=== PATIENT | female | born 1985 | race Caucasian/White ===

== ENCOUNTER 2016-05-04 20:40 | Emergency (ER) | payer MEDICARE, MEDICAID ==
[~2016-05-04] VITALS: Ht 162.6 cm; Wt 70.5 kg
[~2016-05-04 20:40] MED LIST: AMBIEN5 MG PO; AMOXICILLIN 50500 MG PO; AMOXICILLIN 8751 TAB PO; ATARAX 25MG25 MG/TAB PO; ATIVAN; ATIVAN 0.50.5 MG/TAB PO; BUTALBITAL/APAP1 TA1 PO; CALAN SR240 MG PO; CARAFATE 1GM1 G PO; CIPRO; CIPRO 500MG TA500 MG PO; CLEOCIN HC150 MG/CAP PO; COMBIVENT INH14.7 GM IH; COMPAZINE25 M1 PO; CYCLOBENZAPRINE10 MG PO; CYMBALTA60 MG PO; DARVOCET N 101 UDTAB PO; DARVOCET-N-101 UDTAB PO; DESYREL 50MG50 MG PO; DIAZEPAM5 MG PO; DILAUDID 2MG TAB2 MG PO; DILAUDID 4MG TAB4 MG PO; DILAUDID4 MG PO; DOXYCYCLINE 10100 MG PO; EC NAPROSYN500 MG PO; ELAVIL10 MG PO; FENTANYL 50MCG TP; FIORICET 325 MG1 TAB PO; FLEXERIL 1010 MG/TAB PO; FLEXERIL10 MG PO; HALDOL 2MG T2 MG/TAB PO; HYDROCODONE BIT1 T44 PO; IBU-8800 MG PO; IBU800 M1 PO; INDERAL 20MG20 MG PO; KETOROLAC IM; KETOROLAC10 MG PO; KLONOPIN 0.5MG0.5 MG PO; KLONOPIN1 MG PO; KLONOPIN2 MG PO; LIORESAL 1010 MG/TAB PO; LITHIUM 30300 MG/CAP PO; LORTAB 7.5/5001 TAB PO; LORTAB ELIX0.5 MG/ML; LYRICA; MACROBID 1100 MG/CAP PO; MACROBID100 MG PO; MAXALT MLT10 MG/TAB PO; MEDROL 4MG DOSPA4 MG PO; METOPROLOL SUCC25 M1 PO; MOTRIN 800800 MG/TAB PO; MOTRIN400 MG PO; MOTRIN800 MG PO; NAPROSYN500 MG PO; NAPROXEN250 MG PO; NEURONTIN300 MG/CAP PO; NO HOME MEDICATIONS; NORCO 325 MG-51 TAB PO; OMNICEF 300MG300 MG PO; OXYCODONE5 MG PO; PCN-200200 MG PO; PEPCID 20MG TAB20 MG PO; PERCOCET 325 MG1 TA2 PO; PERCR 7.5 PO; PHENERGAN 25 TA25 MG; PHENERGAN 25 TA25 MG PO; PHENERGAN25 MG RC; PRILOSEC 20MG20 MG PO; PROMETHAZINE12.5 M5 PO; PYRIDIUM 100MG100 MG PO; PYRIDIUM200 M1 PO; REGLAN 10MG10 MG/TAB PO; RISPERDAL 0.5M0.5 MG PO; ROBAXIN500 MG PO; SEROQUEL 2525 MG/TAB PO; SEROQUEL50 MG PO; SOMA; SOMA 350MG350 MG/TAB PO; SUPREX FERROUS325 MG PO; TENORMIN 2525 MG/TAB PO; TENORMIN 5050 MG/TAB; TENORMIN 5050 MG/TAB PO; TIZANIDINE2 MG PO; TOPAMAX 25MG25 MG PO; TOPROL XL 50MG50 MG PO; TRAMADOL50 MG PO; TRAZADONE HYDR100 MG PO; TUSS PO; TYLENOL 500MG500 MG PO; TYLENOL W/COD1 UDTAB PO; ULTRAM 50MG TAB50 MG PO; ULTRAM50 MG PO; UNABLE; URELLE; VALIUM 5MG T5 MG/TAB PO; VALIUM5 MG PO; VYVANSE30 MG PO; XANAX 0.5MG0.5 MG PO; XANAX 1MG1 MG PO; XANAX0.25 MG PO; XANAX0.5 MG PO; XANAX2 MG PO; ZANAFLEX2 MG PO; ZANAFLEX4 M1 PO; ZOFRAN 8MG8 MG PO; ZOFRAN4 MG PO; ZOLPIDEM5 MG PO; ZYPREXA10 MG PO
[2016-05-04 21:46] LABS: BASO # 0.1 (0.0-0.2); BASO % 0.7 % (0.0-2.0); EOS # 0.3 (0.0-0.7); EOS % 3.9 % (0-4.0); GRAN # 3.5 (1.4-6.5); GRAN % 47.6 % (42.2-75.2); LYMPH # 2.9 (1.2-3.4); LYMPH % 38.9 % (20.0-51.0); MEAN CELL VOLUME 98 fl (80.0-100.0); MEAN CORPUSCULAR HGB CONC 33 g/dl (33.0-37.0); MONO # 0.7 (0.1-0.6); MONO % 8.9 % (1.7-9.3); PLATELET COUNT 277 K/mm3 (130-400); RED BLOOD COUNT 3.66 M/mm3 (4.10-5.30); REDCELL DISTRIBUTION WIDTH-CV 12.9 % (11.5-14.5); WHITE BLOOD COUNT 7.4 K/mm3 (4.8-10.8)
[2016-05-04 21:50] LABS: HEMATOCRIT 35.8 % (37.0-47.0); HEMOGLOBIN 11.9 g/dl (12.5-16.0); MEAN CORPUSCULAR HEMOGLOBIN 33 pg (27.0-31.0)
[2016-05-04 21:53] LABS: BILIRUBIN,TOTAL 0.5 mg/dL (0.0-1.0); CREATININE, serum 0.73 mg/dL (0.52-1.25); POTASSIUM 4.5 mmol/L (3.4-5.0); TOTAL PROTEIN 7.1 gm/dL (6.4-8.2)
[2016-05-04 23:34] VITALS: BP 114/77; PULSE 90; TEMP 97.6
== END 2016-05-04 23:37 | disposition home or self-care (01) ==
LOC: COL.ER 20:40
PROVIDERS: Emergency Medicine
DX: S06.0X9A Concussion with loss of consciousness of unspecified duration, initial encounter (principal); M54.2 Cervicalgia; M54.89 Other dorsalgia; V80.010A Animal-rider injured by fall from or being thrown from horse in noncollision accident, initial encounter; Y93.52 Activity, horseback riding
CPT/HCPCS: J1170; J2060; J7030; Q9967

== ENCOUNTER 2016-05-17 13:39 | Emergency (ER) | payer MEDICARE, MEDICAID ==
[~2016-05-17] VITALS: Ht 162.6 cm; Wt 70.0 kg
[2016-05-17 13:40] VITALS: BP 119/76; PULSE 82; TEMP 98.2
[2016-05-17] MEDS ORDERED: MOBIC15 MG PO (13:44)
== END 2016-05-17 14:30 | disposition left against medical advice (07) ==
LOC: COL.ER 13:39
DX: Z53.9 Procedure and treatment not carried out, unspecified reason (principal)

== ENCOUNTER 2016-06-08 19:42 | Emergency (ER) | payer MEDICARE, MEDICAID ==
[~2016-06-08] VITALS: Ht 162.6 cm; Wt 67.7 kg
[~2016-06-08 19:42] MED LIST changes: +MOBIC15 MG PO
[2016-06-08 19:50] VITALS: BP 129/87; PULSE 93; TEMP 98.1
== END 2016-06-08 21:34 | disposition home or self-care (01) ==
LOC: COL.ER 19:42
DX: T52.0X1A Toxic effect of petroleum products, accidental (unintentional), initial encounter (principal); H10.211 Acute toxic conjunctivitis, right eye

== ENCOUNTER 2016-06-21 11:10 | Emergency (ER) | payer MEDICARE, MEDICAID ==
[~2016-06-21] VITALS: Ht 162.6 cm; Wt 63.6 kg
[2016-06-21] MEDS ORDERED: PREDNISONE20 MG PO (12:21)
[2016-06-21] MEDS ORDERED: ZITHROMAX Z PA250 MG PO (12:21)
[2016-06-21 12:46] VITALS: BP 117/74; PULSE 92; TEMP 98.1
== END 2016-06-21 12:54 | disposition home or self-care (01) ==
LOC: COL.ER 11:10
DX: J20.9 Acute bronchitis, unspecified (principal); J45.909 Unspecified asthma, uncomplicated; F17.210 Nicotine dependence, cigarettes, uncomplicated

== ENCOUNTER 2016-07-28 15:08 | Emergency (ER) | payer MEDICARE, MEDICAID ==
[~2016-07-28] VITALS: Ht 162.6 cm; Wt 68.2 kg
[~2016-07-28 15:08] MED LIST changes: +PREDNISONE20 MG PO; +ZITHROMAX Z PA250 MG PO
[2016-07-28 15:13] VITALS: TEMP 99.1
[2016-07-28] MEDS ORDERED: LIORESAL20 MG PO (15:16)
[2016-07-28 15:57] LABS: BASO # 0.1 (0.0-0.2); BASO % 0.7 % (0.0-2.0); EOS # 0.1 (0.0-0.7); EOS % 1.6 % (0-4.0); GRAN # 4.5 (1.4-6.5); GRAN % 60.7 % (42.2-75.2); HEMATOCRIT 38.3 % (37.0-47.0); HEMOGLOBIN 12.9 g/dl (12.5-16.0); LYMPH # 2.3 (1.2-3.4); LYMPH % 30.6 % (20.0-51.0); MEAN CELL VOLUME 93 fl (80.0-100.0); MEAN CORPUSCULAR HEMOGLOBIN 31 pg (27.0-31.0); MEAN CORPUSCULAR HGB CONC 34 g/dl (33.0-37.0); MEAN PLATELET VOLUME 11.3 fl (7.4-10.4); MONO # 0.5 (0.1-0.6); MONO % 6.3 % (1.7-9.3); PLATELET COUNT 240 K/mm3 (130-400); RED BLOOD COUNT 4.13 M/mm3 (4.10-5.30); REDCELL DISTRIBUTION WIDTH-CV 12.8 % (11.5-14.5); WHITE BLOOD COUNT 7.4 K/mm3 (4.8-10.8)
[2016-07-28 16:06] LABS: ADJUSTED CALCIUM 9.6 mg/dL (8.4-10.2); ALBUMIN 4.4 gm/dL (3.5-5.0); BILIRUBIN,TOTAL 0.7 mg/dL (0.0-1.0); CALCIUM 9.9 mg/dL (8.4-10.2); CREATININE, serum 0.63 mg/dL (0.52-1.25); POTASSIUM 3.7 mmol/L (3.4-5.0); TOTAL PROTEIN 7.4 gm/dL (6.4-8.2)
[2016-07-28 16:29] LABS: PH 6 (5-8); URINE APPEARANCE Hazy; URINE BACTERIA Rare /hpf; URINE BILIRUBIN Negative (NEGATIVE); URINE BLOOD Negative (NEGATIVE); URINE COLOR Yellow; URINE GLUCOSE Negative (NEGATIVE); URINE KETONE 1+ (NEGATIVE); URINE RBC 0-2 /hpf; URINE UROBILINOGEN Negative (NEGATIVE); URINE WBC 0-2 /hpf
[2016-07-28] MEDS ORDERED: PHENERGAN 25 TA25 MG PO (16:44)
[2016-07-28 16:57] VITALS: BP 117/66; PULSE 73
== END 2016-07-28 17:02 | disposition home or self-care (01) ==
LOC: COL.ER 15:08
PROVIDERS: Family Medicine
DX: A08.4 Viral intestinal infection, unspecified (principal)
CPT/HCPCS: J2550; J7030

== ENCOUNTER 2017-01-19 02:33 | Inpatient (IN) | payer MEDICARE ==
[2017-01-19] VITALS (869 sets, daily range): BP systolic 90–112; BP diastolic 53–76; PULSE 48–91; TEMP 97.6–98.7; O2SAT 66–100
[~2017-01-19] VITALS: Ht 172.7 cm; Wt 70.2 kg
[~2017-01-19 02:33] MED LIST changes: +LIORESAL20 MG PO
[2017-01-19 03:40] LABS: BASO % 0.5 % (0.0-2.0); EOS # 0.3 (0.0-0.7); EOS % 3.8 % (0-4.0); GRAN # 4.4 (1.4-6.5); GRAN % 53.7 % (42.2-75.2); LYMPH # 2.7 (1.2-3.4); MEAN CELL VOLUME 99 fl (80.0-100.0); MEAN CORPUSCULAR HEMOGLOBIN 33 pg (27.0-31.0); MEAN CORPUSCULAR HGB CONC 34 g/dl (33.0-37.0); MEAN PLATELET VOLUME 10.6 fl (7.4-10.4); MONO # 0.7 (0.1-0.6); MONO % 8.6 % (1.7-9.3); PLATELET COUNT 263 K/mm3 (130-400); RED BLOOD COUNT 3.61 M/mm3 (4.10-5.30); REDCELL DISTRIBUTION WIDTH-CV 12.9 % (11.5-14.5); WHITE BLOOD COUNT 8.3 K/mm3 (4.8-10.8)
[2017-01-19 03:43] LABS: HEMATOCRIT 35.8 % (37.0-47.0)
[2017-01-19 03:44] LABS: PH 6 (5-8); SQUAMOUS EPITHELIAL 0-2 /hpf; URINE APPEARANCE Clear; URINE BACTERIA None Seen /hpf; URINE BILIRUBIN Negative (NEGATIVE); URINE BLOOD 2+ (NEGATIVE); URINE COLOR Straw; URINE GLUCOSE Negative (NEGATIVE); URINE KETONE Negative (NEGATIVE); URINE UROBILINOGEN Negative (NEGATIVE); URINE WBC 0-2 /hpf
[2017-01-19 03:53] LABS: AMPHETAMINE URINE NEGATIVE; BARBITURATES URINE NEGATIVE; BENZODIAZEPINES URINE NEGATIVE; BUPRENORPHINE URINE NEGATIVE; METHADONE URINE NEGATIVE; OPIATES URINE POSITIVE; OXYCODONE URINE NEGATIVE; PHENCYCLIDINE URINE NEGATIVE; PROPOXYPHENE URINE NEGATIVE; THC CANNABINOIDS URINE NEGATIVE
[2017-01-19 03:55] LABS: ADJUSTED CALCIUM 9.3 mg/dL (8.4-10.2); ALANINE AMINOTRANSFERASE 33 U/L (9-52); ALKALINE PHOSPHATASE 70 U/L (50-136); ANION GAP 10 mmol/L (7-16); BILIRUBIN,TOTAL 0.3 mg/dL (0.0-1.0); BLOOD UREA NITROGEN 8 mg/dL (7-17); CALCIUM 9.3 mg/dL (8.4-10.2); CARBON DIOXIDE 26 mmol/L (22-30); CHLORIDE 108 mmol/L (98-107); CREATININE, serum 0.64 mg/dL (0.52-1.25); GLUCOSE 79 mg/dL (74-106); LIPASE 66 U/L (23-300); POTASSIUM 3.7 mmol/L (3.4-5.0); SODIUM 143 mmol/L (137-145)
[2017-01-19 03:56] LABS: ACETAMINOPHEN < 10 ug/mL (10-30); SALICYLATE < 1.0 mg/dL
[2017-01-19 04:11] LABS: PROLACTIN 26.5 ng/mL (3.0-18.6)
[2017-01-19 04:13] LABS: TROPONIN-I < 0.012 ng/mL (0.000-0.034)
[2017-01-19 09:56] LABS: INR 1.1 (0.8-3.0); PROTHROMBIN TIME 11.7 SECONDS (9.7-12.8)
[2017-01-19 09:57] LABS: BASO % 0.7 % (0.0-2.0); EOS # 0.2 (0.0-0.7); EOS % 4.1 % (0-4.0); GRAN # 2.3 (1.4-6.5); GRAN % 42.2 % (42.2-75.2); LYMPH # 2.4 (1.2-3.4); LYMPH % 44.7 % (20.0-51.0); MEAN CELL VOLUME 101 fl (80.0-100.0); MEAN CORPUSCULAR HGB CONC 33 g/dl (33.0-37.0); MEAN PLATELET VOLUME 10.6 fl (7.4-10.4); MONO # 0.4 (0.1-0.6); MONO % 8.1 % (1.7-9.3); PLATELET COUNT 222 K/mm3 (130-400); RED BLOOD COUNT 3.14 M/mm3 (4.10-5.30); REDCELL DISTRIBUTION WIDTH-CV 13.2 % (11.5-14.5); WHITE BLOOD COUNT 5.4 K/mm3 (4.8-10.8)
[2017-01-19 09:59] LABS: PARTIAL THROMBOPLASTIN TIME 31.9 SECONDS (26.0-37.0)
[2017-01-19 10:02] LABS: HEMATOCRIT 31.6 % (37.0-47.0); HEMOGLOBIN 10.4 g/dl (12.5-16.0); MEAN CORPUSCULAR HEMOGLOBIN 33 pg (27.0-31.0)
[2017-01-19 10:25] LABS: ADJUSTED CALCIUM 8.8 mg/dL (8.4-10.2); ALANINE AMINOTRANSFERASE 28 U/L (9-52); ALBUMIN 3.1 gm/dL (3.5-5.0); ALKALINE PHOSPHATASE 50 U/L (50-136); ANION GAP 7 mmol/L (7-16); BILIRUBIN,TOTAL 0.3 mg/dL (0.0-1.0); BLOOD UREA NITROGEN 6 mg/dL (7-17); CALCIUM 8.1 mg/dL (8.4-10.2); CARBON DIOXIDE 25 mmol/L (22-30); CHLORIDE 112 mmol/L (98-107); CREATINE KINASE 54 U/L (30-135); CREATININE, serum 0.57 mg/dL (0.52-1.25); GLUCOSE 137 mg/dL (74-106); MAGNESIUM 1.8 mg/dL (1.6-2.3); PHOSPHOROUS 2.7 mg/dL (2.5-4.5); POTASSIUM 3.6 mmol/L (3.4-5.0); SODIUM 144 mmol/L (137-145); TOTAL PROTEIN 5.7 gm/dL (6.4-8.2)
[2017-01-19 10:33] LABS: TROPONIN-I < 0.012 ng/mL (0.000-0.034)
[2017-01-19 10:37] LABS: ARTERIAL BLD GAS O2 SATURATION 98.3 % (92-100); ARTERIAL BLD GAS TCO2 CT 28.1; ARTERIAL BLOOD GAS BASE EXCESS 2.4 (-2-2); ARTERIAL BLOOD GAS HCO3 26.8 meq/L (22-26); ARTERIAL BLOOD GAS PO2 149.8 mmHg (80-100); ARTERIAL BLOOD GAS pH 7.44 (7.35-7.45); OXYHEMOGLOBIN 96.9 %
[2017-01-19 10:38] LABS: ABG VENTILATOR TIDAL VOLUME 420 mL; ALLEN TEST YES; ALLENS TEST RESULT PASS; ATS? YES
[2017-01-19 17:12] LABS: ARTERIAL BLD GAS O2 SATURATION 95.1 % (92-100); ARTERIAL BLD GAS TCO2 CT 26.1; ARTERIAL BLOOD GAS BASE EXCESS 0.3 (-2-2); ARTERIAL BLOOD GAS HCO3 24.9 meq/L (22-26); ARTERIAL BLOOD GAS PO2 79.1 mmHg (80-100); ARTERIAL BLOOD GAS pH 7.41 (7.35-7.45); ATS? YES; OXYHEMOGLOBIN 94.2 %
[2017-01-19 18:21] LABS: BASO % 0.5 % (0.0-2.0); EOS # 0.2 (0.0-0.7); EOS % 2.5 % (0-4.0); GRAN # 5.5 (1.4-6.5); GRAN % 62.4 % (42.2-75.2); HEMATOCRIT 33.3 % (37.0-47.0); LYMPH # 2.4 (1.2-3.4); LYMPH % 27.5 % (20.0-51.0); MEAN CELL VOLUME 101 fl (80.0-100.0); MEAN CORPUSCULAR HEMOGLOBIN 33 pg (27.0-31.0); MEAN CORPUSCULAR HGB CONC 33 g/dl (33.0-37.0); MEAN PLATELET VOLUME 10.5 fl (7.4-10.4); MONO # 0.6 (0.1-0.6); PLATELET COUNT 228 K/mm3 (130-400); RED BLOOD COUNT 3.29 M/mm3 (4.10-5.30); REDCELL DISTRIBUTION WIDTH-CV 13.2 % (11.5-14.5); WHITE BLOOD COUNT 8.8 K/mm3 (4.8-10.8)
[2017-01-19 18:25] LABS: INR 1.1 (0.8-3.0); PROTHROMBIN TIME 11.8 SECONDS (9.7-12.8)
[2017-01-19 18:27] LABS: PARTIAL THROMBOPLASTIN TIME 31.8 SECONDS (26.0-37.0)
[2017-01-19 18:30] LABS: ALANINE AMINOTRANSFERASE 31 U/L (9-52); ALBUMIN 3.4 gm/dL (3.5-5.0); ALKALINE PHOSPHATASE 54 U/L (50-136); ANION GAP 4 mmol/L (7-16); BILIRUBIN,TOTAL 0.5 mg/dL (0.0-1.0); BLOOD UREA NITROGEN 7 mg/dL (7-17); CALCIUM 8.5 mg/dL (8.4-10.2); CARBON DIOXIDE 26 mmol/L (22-30); CHLORIDE 111 mmol/L (98-107); CREATINE KINASE 45 U/L (30-135); CREATININE, serum 0.57 mg/dL (0.52-1.25); GLUCOSE 89 mg/dL (74-106); MAGNESIUM 1.9 mg/dL (1.6-2.3); PHOSPHOROUS 2.7 mg/dL (2.5-4.5); POTASSIUM 4.2 mmol/L (3.4-5.0); SODIUM 140 mmol/L (137-145); TOTAL PROTEIN 6.1 gm/dL (6.4-8.2)
[2017-01-19 18:44] LABS: TROPONIN-I < 0.012 ng/mL (0.000-0.034)
[2017-01-20] VITALS (535 sets, daily range): BP systolic 110–127; BP diastolic 64–87; PULSE 62–110; TEMP 97.1–98.2; O2SAT 64–100
[2017-01-20 05:06] LABS: BASO # 0.1 (0.0-0.2); BASO % 0.7 % (0.0-2.0); EOS # 0.2 (0.0-0.7); EOS % 2.7 % (0-4.0); GRAN # 3.9 (1.4-6.5); GRAN % 55.6 % (42.2-75.2); LYMPH # 2.3 (1.2-3.4); LYMPH % 32.4 % (20.0-51.0); MEAN CELL VOLUME 102 fl (80.0-100.0); MEAN CORPUSCULAR HGB CONC 33 g/dl (33.0-37.0); MEAN PLATELET VOLUME 10.5 fl (7.4-10.4); MONO # 0.6 (0.1-0.6); MONO % 8.5 % (1.7-9.3); PLATELET COUNT 202 K/mm3 (130-400); RED BLOOD COUNT 3.08 M/mm3 (4.10-5.30); REDCELL DISTRIBUTION WIDTH-CV 13.2 % (11.5-14.5)
[2017-01-20 05:21] LABS: ADJUSTED CALCIUM 8.9 mg/dL (8.4-10.2); ALBUMIN 3.1 gm/dL (3.5-5.0); BILIRUBIN,TOTAL 0.5 mg/dL (0.0-1.0); CALCIUM 8.2 mg/dL (8.4-10.2); CREATININE, serum 0.58 mg/dL (0.52-1.25); MAGNESIUM 1.7 mg/dL (1.6-2.3); PHOSPHOROUS 3.3 mg/dL (2.5-4.5); POTASSIUM 3.8 mmol/L (3.4-5.0); TOTAL PROTEIN 5.7 gm/dL (6.4-8.2)
[2017-01-20 05:37] LABS: HEMATOCRIT 31.4 % (37.0-47.0); HEMOGLOBIN 10.5 g/dl (12.5-16.0); MEAN CORPUSCULAR HEMOGLOBIN 34 pg (27.0-31.0)
[2017-01-20] MEDS ORDERED: ATIVAN 1MG T1 MG/TAB PO (15:43)
[2017-01-23] MEDS ORDERED: NORCO 325 MG-51 TAB PO (10:56)
[2017-01-23] MEDS ORDERED: KLONOPIN2 MG PO (11:59)
[2017-01-23] MEDS ORDERED: ULTRAM 50MG TAB50 MG PO (12:00)
[2017-01-23] MEDS ORDERED: NEURONTIN600 MG/TAB PO (12:01)
[2017-01-23] MEDS ORDERED: OXYCONTIN40 MG PO (12:02)
[2017-01-23] MEDS ORDERED: MACROBID 1100 MG/CAP PO (23:38)
== END 2017-01-20 17:30 | disposition short-term general hospital (02) | DRG 917 ==
LOC: COL.ER 02:33 → ICU 06:56
PROVIDERS: Emergency Medicine; Internal Medicine Pulmonary Disease
PROC: 5A1935Z Respiratory Ventilation, Less than 24 Consecutive Hours (ICD-10-PCS; principal; 2017-01-19)
PROC: 0BH18EZ Insertion of Endotracheal Airway into Trachea, Via Natural or Artificial Opening Endoscopic (ICD-10-PCS; 2017-01-19)
DX: T42.8X2A Poisoning by antiparkinsonism drugs and other central muscle-tone depressants, intentional self-harm, initial encounter (principal); J96.01 Acute respiratory failure with hypoxia; G40.89 Other seizures; F41.1 Generalized anxiety disorder; F17.210 Nicotine dependence, cigarettes, uncomplicated; F11.10 Opioid abuse, uncomplicated; F13.10 Sedative, hypnotic or anxiolytic abuse, uncomplicated; F32.9 Major depressive disorder, single episode, unspecified
CPT/HCPCS: 99223-AI; 99239; C1751; C1894; J1170; J1610; J1644; J1650; J2060; J2270; J2310; J3411; J7030; J7042

== ENCOUNTER 2017-01-25 01:24 | Emergency (ER) | payer MEDICARE, MEDICAID ==
[~2017-01-25] VITALS: Ht 165.1 cm; Wt 67.7 kg
[~2017-01-25 01:24] MED LIST changes: +ATIVAN 1MG T1 MG/TAB PO; +NEURONTIN600 MG/TAB PO; +OXYCONTIN40 MG PO
[2017-01-25 01:59] LABS: BASO # 0.1 (0.0-0.2); BASO % 0.7 % (0.0-2.0); EOS # 0.3 (0.0-0.7); EOS % 3.6 % (0-4.0); GRAN # 3.1 (1.4-6.5); GRAN % 43.3 % (42.2-75.2); LYMPH # 3.1 (1.2-3.4); LYMPH % 43.2 % (20.0-51.0); MEAN CELL VOLUME 99 fl (80.0-100.0); MEAN CORPUSCULAR HGB CONC 34 g/dl (33.0-37.0); MEAN PLATELET VOLUME 10.4 fl (7.4-10.4); MONO # 0.7 (0.1-0.6); MONO % 9.1 % (1.7-9.3); PLATELET COUNT 233 K/mm3 (130-400); RED BLOOD COUNT 3.45 M/mm3 (4.10-5.30); REDCELL DISTRIBUTION WIDTH-CV 12.7 % (11.5-14.5); WHITE BLOOD COUNT 7.2 K/mm3 (4.8-10.8)
[2017-01-25 02:00] LABS: HEMATOCRIT 34.2 % (37.0-47.0); HEMOGLOBIN 11.6 g/dl (12.5-16.0); MEAN CORPUSCULAR HEMOGLOBIN 34 pg (27.0-31.0)
[2017-01-25 02:05] LABS: PH 7 (5-8); SQUAMOUS EPITHELIAL 0-2 /hpf; URINE APPEARANCE Clear; URINE BACTERIA None Seen /hpf; URINE BILIRUBIN Negative (NEGATIVE); URINE BLOOD Negative (NEGATIVE); URINE COLOR Yellow; URINE GLUCOSE Negative (NEGATIVE); URINE KETONE Negative (NEGATIVE); URINE RBC 0-2 /hpf; URINE UROBILINOGEN Negative (NEGATIVE); URINE WBC 0-2 /hpf
[2017-01-25 02:10] LABS: AMPHETAMINE URINE NEGATIVE; BARBITURATES URINE NEGATIVE; BENZODIAZEPINES URINE POSITIVE; BUPRENORPHINE URINE NEGATIVE; METHADONE URINE NEGATIVE; OPIATES URINE POSITIVE; OXYCODONE URINE NEGATIVE; PHENCYCLIDINE URINE NEGATIVE; PROPOXYPHENE URINE NEGATIVE; THC CANNABINOIDS URINE NEGATIVE
[2017-01-25 02:15] LABS: ACETAMINOPHEN < 10 ug/mL (10-30); ALANINE AMINOTRANSFERASE 23 U/L (9-52); ALBUMIN 4.1 gm/dL (3.5-5.0); ALKALINE PHOSPHATASE 61 U/L (50-136); ANION GAP 9 mmol/L (7-16); BILIRUBIN,TOTAL 0.5 mg/dL (0.0-1.0); BLOOD UREA NITROGEN 7 mg/dL (7-17); CALCIUM 9.1 mg/dL (8.4-10.2); CARBON DIOXIDE 23 mmol/L (22-30); CHLORIDE 106 mmol/L (98-107); GLUCOSE 82 mg/dL (74-106); POTASSIUM 3.5 mmol/L (3.4-5.0); SALICYLATE < 1.0 mg/dL; SODIUM 138 mmol/L (137-145)
[2017-01-25 04:50] LABS: ALLEN TEST YES; ALLENS TEST RESULT PASS; ARTERIAL BLD GAS O2 SATURATION 94.6 % (92-100); ARTERIAL BLD GAS TCO2 CT 25.1; ARTERIAL BLOOD GAS BASE EXCESS -3.6 (-2-2); ARTERIAL BLOOD GAS HCO3 23.6 meq/L (22-26); ARTERIAL BLOOD GAS PO2 83.9 mmHg (80-100); ARTERIAL BLOOD GAS pH 7.28 (7.35-7.45); ATS? YES; OXYHEMOGLOBIN 93.4 %
[2017-01-25 05:13] VITALS: TEMP 96.6
[2017-01-25 05:59] LABS: ARTERIAL BLD GAS O2 SATURATION 98.5 % (92-100); ARTERIAL BLD GAS TCO2 CT 22.4; ARTERIAL BLOOD GAS BASE EXCESS -2.2 (-2-2); ARTERIAL BLOOD GAS HCO3 21.4 meq/L (22-26); ARTERIAL BLOOD GAS pH 7.43 (7.35-7.45); OXYHEMOGLOBIN 97.5 %
[2017-01-25 06:00] LABS: ARTERIAL BLOOD GAS PO2 155.7 mmHg (80-100); ATS? YES
[2017-01-25 06:01] LABS: ABG VENTILATOR TIDAL VOLUME 500 mL; ALLEN TEST YES; ALLENS TEST RESULT PASS
[2017-01-25 08:18] VITALS: BP 100/72; PULSE 49
== END 2017-01-25 08:56 | disposition short-term general hospital (02) ==
LOC: COL.ER 01:24 → ICU 04:10 → COL.ER 04:10
PROVIDERS: Emergency Medicine; Nurse Practitioner Family
DX: J96.90 Respiratory failure, unspecified, unspecified whether with hypoxia or hypercapnia (principal); T50.901A Poisoning by unspecified drugs, medicaments and biological substances, accidental (unintentional), initial encounter; I95.9 Hypotension, unspecified; R41.82 Altered mental status, unspecified; F41.9 Anxiety disorder, unspecified; F32.9 Major depressive disorder, single episode, unspecified; F17.210 Nicotine dependence, cigarettes, uncomplicated
CPT/HCPCS: J0461; J1265; J2310; J7030

== ENCOUNTER 2017-02-02 03:25 | Emergency (ER) | payer MEDICARE ==
[~2017-02-02] VITALS: Ht 167.6 cm; Wt 72.7 kg
[2017-02-02 03:44] LABS: ALLEN TEST YES; ALLENS TEST RESULT PASS; ARTERIAL BLD GAS O2 SATURATION 95.4 % (92-100); ARTERIAL BLD GAS TCO2 CT 18.6; ARTERIAL BLOOD GAS BASE EXCESS -7.5 (-2-2); ARTERIAL BLOOD GAS HCO3 17.6 meq/L (22-26); ARTERIAL BLOOD GAS PO2 87.3 mmHg (80-100); ARTERIAL BLOOD GAS pH 7.33 (7.35-7.45); ATS? YES; OXYHEMOGLOBIN 94.4 %
[2017-02-02 04:12] VITALS: TEMP 97.7
[2017-02-02 04:41] LABS: BASO # 0.1 (0.0-0.2); BASO % 0.8 % (0.0-2.0); EOS # 0.4 (0.0-0.7); EOS % 5.2 % (0-4.0); GRAN # 3.7 (1.4-6.5); GRAN % 46.4 % (42.2-75.2); HEMATOCRIT 34.7 % (37.0-47.0); HEMOGLOBIN 11.9 g/dl (12.5-16.0); INR 0.9 (0.8-3.0); LYMPH % 38.2 % (20.0-51.0); MEAN CELL VOLUME 98 fl (80.0-100.0); MEAN CORPUSCULAR HEMOGLOBIN 34 pg (27.0-31.0); MEAN CORPUSCULAR HGB CONC 34 g/dl (33.0-37.0); MEAN PLATELET VOLUME 10.8 fl (7.4-10.4); MONO # 0.7 (0.1-0.6); MONO % 9.1 % (1.7-9.3); PLATELET COUNT 245 K/mm3 (130-400); PROTHROMBIN TIME 9.6 SECONDS (9.7-12.8); RED BLOOD COUNT 3.55 M/mm3 (4.10-5.30); WHITE BLOOD COUNT 7.9 K/mm3 (4.8-10.8)
[2017-02-02 04:44] LABS: PARTIAL THROMBOPLASTIN TIME 32.3 SECONDS (26.0-37.0)
[2017-02-02 04:54] LABS: ACETAMINOPHEN < 10 ug/mL (10-30); ADJUSTED CALCIUM 9.3 mg/dL (8.4-10.2); ALANINE AMINOTRANSFERASE 19 U/L (9-52); ALBUMIN 3.8 gm/dL (3.5-5.0); ALCOHOL(ethanol),MEDICAL 48 mg/dL; ALKALINE PHOSPHATASE 78 U/L (50-136); ANION GAP 14 mmol/L (7-16); BILIRUBIN,TOTAL 0.3 mg/dL (0.0-1.0); BLOOD UREA NITROGEN 4 mg/dL (7-17); CALCIUM 9.1 mg/dL (8.4-10.2); CARBON DIOXIDE 20 mmol/L (22-30); CHLORIDE 110 mmol/L (98-107); CREATININE, serum 0.68 mg/dL (0.52-1.25); GLUCOSE 99 mg/dL (74-106); MAGNESIUM 1.9 mg/dL (1.6-2.3); PHOSPHOROUS 4.4 mg/dL (2.5-4.5); POTASSIUM 3.6 mmol/L (3.4-5.0); SALICYLATE < 1.0 mg/dL; SODIUM 144 mmol/L (137-145); TOTAL PROTEIN 6.9 gm/dL (6.4-8.2)
[2017-02-02 05:02] LABS: AMPHETAMINE URINE NEGATIVE; BARBITURATES URINE NEGATIVE; BENZODIAZEPINES URINE NEGATIVE; BUPRENORPHINE URINE NEGATIVE; METHADONE URINE NEGATIVE; OPIATES URINE NEGATIVE; OXYCODONE URINE NEGATIVE; PHENCYCLIDINE URINE NEGATIVE; PROPOXYPHENE URINE NEGATIVE; THC CANNABINOIDS URINE NEGATIVE; TRICYCLIC ANTIDEPRESS URINE NEGATIVE
[2017-02-02 08:57] VITALS: BP 92/51; PULSE 52
== END 2017-02-02 08:56 | disposition short-term general hospital (02) ==
LOC: COL.ER 03:25
PROVIDERS: Emergency Medicine
DX: R41.82 Altered mental status, unspecified (principal); F43.10 Post-traumatic stress disorder, unspecified
CPT/HCPCS: J1610; J2310; J7030

== ENCOUNTER → 2017-07-25 | Outpatient (REF) | LOC: ZLAB.WCH 08:48 | DX: Z01.89 Encounter for other specified special examinations (principal) ==

== ENCOUNTER 2017-10-05 21:40 | Emergency (ER) | payer MEDICARE, MEDICAID ==
[~2017-10-05] VITALS: Ht 162.6 cm; Wt 81.8 kg
[~2017-10-05 21:40] MED LIST changes: +CEPHALEXIN500 M1 PO
[2017-10-05 21:59] VITALS: TEMP 98.7
[2017-10-05] MEDS ORDERED: NEURONTIN600 MG/TAB PO (22:16)
[2017-10-05 22:49] LABS: BASO # 0.1 (0.0-0.2); BASO % 0.8 % (0.0-2.0); EOS # 0.3 (0.0-0.7); EOS % 4.7 % (0-4.0); GRAN # 3.3 (1.4-6.5); GRAN % 54.4 % (42.2-75.2); HEMATOCRIT 36.5 % (37.0-47.0); HEMOGLOBIN 12.7 g/dl (12.5-16.0); LYMPH % 32.7 % (20.0-51.0); MEAN CELL VOLUME 96 fl (80.0-100.0); MEAN CORPUSCULAR HEMOGLOBIN 34 pg (27.0-31.0); MEAN CORPUSCULAR HGB CONC 35 g/dl (33.0-37.0); MEAN PLATELET VOLUME 10.2 fl (7.4-10.4); MONO # 0.4 (0.1-0.6); MONO % 7.2 % (1.7-9.3); PLATELET COUNT 229 K/mm3 (130-400); RED BLOOD COUNT 3.79 M/mm3 (4.10-5.30); REDCELL DISTRIBUTION WIDTH-CV 12.4 % (11.5-14.5)
[2017-10-05 23:12] LABS: ALBUMIN 3.8 gm/dL (3.5-5.0); BILIRUBIN,TOTAL 0.2 mg/dL (0.0-1.0); CALCIUM 8.7 mg/dL (8.4-10.2); CREATININE, serum 0.98 mg/dL (0.52-1.25); POTASSIUM 4.1 mmol/L (3.4-5.0); TOTAL PROTEIN 7.1 gm/dL (6.4-8.2)
[2017-10-06 00:25] VITALS: BP 128/89; PULSE 99
== END 2017-10-06 00:25 | disposition home or self-care (01) ==
LOC: COL.ER 21:40
PROVIDERS: Emergency Medicine
DX: S09.90XA Unspecified injury of head, initial encounter (principal); S29.9XXA Unspecified injury of thorax, initial encounter; S16.1XXA Strain of muscle, fascia and tendon at neck level, initial encounter; V80.010A Animal-rider injured by fall from or being thrown from horse in noncollision accident, initial encounter
CPT/HCPCS: J7030; Q9967

== ENCOUNTER 2017-12-11 02:55 | Inpatient (IN) | payer MEDICARE, MEDICAID ==
[~2017-12-11] VITALS: Ht 160 cm; Wt 80.8 kg
[2017-12-11] VITALS (779 sets, daily range): BP systolic 96–117; BP diastolic 64–82; PULSE 52–72; TEMP 96.8–98; O2SAT 80–100
[2017-12-11 03:11] LABS: BASO # 0.1 (0.0-0.2); BASO % 0.6 % (0.0-2.0); EOS # 0.1 (0.0-0.7); EOS % 0.6 % (0-4.0); GRAN # 6.4 (1.4-6.5); GRAN % 63.1 % (42.2-75.2); HEMATOCRIT 39.4 % (37.0-47.0); HEMOGLOBIN 13.2 g/dl (12.5-16.0); LYMPH # 2.6 (1.2-3.4); LYMPH % 25.5 % (20.0-51.0); MEAN CELL VOLUME 99 fl (80.0-100.0); MEAN CORPUSCULAR HEMOGLOBIN 33 pg (27.0-31.0); MEAN CORPUSCULAR HGB CONC 34 g/dl (33.0-37.0); MEAN PLATELET VOLUME 9.7 fl (7.4-10.4); PLATELET COUNT 251 K/mm3 (130-400); RED BLOOD COUNT 3.97 M/mm3 (4.10-5.30); REDCELL DISTRIBUTION WIDTH-CV 12.7 % (11.5-14.5)
[2017-12-11 03:20] LABS: ACETAMINOPHEN < 10 ug/mL (10-30); ALANINE AMINOTRANSFERASE 29 U/L (9-52); ALBUMIN 4.6 gm/dL (3.5-5.0); ALCOHOL(ethanol),MEDICAL < 10 mg/dL; ALKALINE PHOSPHATASE 55 U/L (50-136); ANION GAP 12 mmol/L (7-16); AST,SGOT 24 U/L (15-37); BILIRUBIN,TOTAL 0.5 mg/dL (0.0-1.0); BLOOD UREA NITROGEN 11 mg/dL (7-17); CALCIUM 9.2 mg/dL (8.4-10.2); CARBON DIOXIDE 21 mmol/L (22-30); CHLORIDE 108 mmol/L (98-107); CREATININE, serum 0.77 mg/dL (0.52-1.25); GLUCOSE 110 mg/dL (74-106); POTASSIUM 3.4 mmol/L (3.4-5.0); SALICYLATE < 1.0 mg/dL; SODIUM 141 mmol/L (137-145)
[2017-12-11 03:27] LABS: COLLECTION METHOD CATHETER
[2017-12-11 03:28] LABS: ARTERIAL BLD GAS O2 SATURATION 97.7 % (92-100); ARTERIAL BLD GAS TCO2 CT 24.7; ARTERIAL BLOOD GAS BASE EXCESS -1.8 (-2-2); ARTERIAL BLOOD GAS HCO3 23.4 meq/L (22-26); ARTERIAL BLOOD GAS PCO2 41.2 mmHg (35-45); ARTERIAL BLOOD GAS pH 7.37 (7.35-7.45)
[2017-12-11 03:29] LABS: ARTERIAL BLOOD GAS PO2 127.3 mmHg (80-100)
[2017-12-11 03:39] LABS: MUCOUS Present /lpf; PH 5 (5-8); URINE APPEARANCE Cloudy; URINE BACTERIA None Seen /hpf; URINE BILIRUBIN Negative (NEGATIVE); URINE BLOOD Negative (NEGATIVE); URINE COLOR Amber; URINE GLUCOSE Negative (NEGATIVE); URINE KETONE 1+ (NEGATIVE); URINE LEUKOCYTE ESTERASE Trace (NEGATIVE); URINE NITRATE Negative (NEGATIVE); URINE PROTEIN(semi-quant) 2+ (NEGATIVE)
[2017-12-11 03:42] LABS: TRICYCLIC ANTIDEPRESS URINE NEGATIVE
[2017-12-11 05:48] LABS: ARTERIAL BLD GAS O2 SATURATION 95.9 % (92-100); ARTERIAL BLD GAS TCO2 CT 25.6; ARTERIAL BLOOD GAS BASE EXCESS -0.9 (-2-2); ARTERIAL BLOOD GAS HCO3 24.3 meq/L (22-26); ARTERIAL BLOOD GAS PCO2 42.3 mmHg (35-45); ARTERIAL BLOOD GAS PO2 82.7 mmHg (80-100); ARTERIAL BLOOD GAS pH 7.38 (7.35-7.45)
[2017-12-11 10:02] LABS: COLLECTION METHOD CATHETER
[2017-12-11 11:00] LABS: AMORPHOUS CRYSTAL Present /uL; MUCOUS Present /lpf; PH 5 (5-8); SQUAMOUS EPITHELIAL 0-2 /hpf; URINE APPEARANCE Turbid; URINE BACTERIA None Seen /hpf; URINE BILIRUBIN Negative (NEGATIVE); URINE BLOOD Negative (NEGATIVE); URINE COLOR Amber; URINE GLUCOSE Negative (NEGATIVE); URINE KETONE 1+ (NEGATIVE); URINE LEUKOCYTE ESTERASE Negative (NEGATIVE); URINE NITRATE Negative (NEGATIVE); URINE PROTEIN(semi-quant) 2+ (NEGATIVE); URINE UROBILINOGEN Negative (NEGATIVE)
[2017-12-11] MEDS ORDERED: NEURONTIN600 MG/TAB PO (13:35)
[2017-12-12] VITALS (175 sets, daily range): BP systolic 100–112; BP diastolic 64–79; PULSE 63–96; TEMP 97–98.2; O2SAT 88–100
[2017-12-12 05:34] LABS: HEMOGLOBIN 12.1 g/dl (12.5-16.0); MEAN CELL VOLUME 99 fl (80.0-100.0); MEAN CORPUSCULAR HEMOGLOBIN 34 pg (27.0-31.0); MEAN CORPUSCULAR HGB CONC 34 g/dl (33.0-37.0); MEAN PLATELET VOLUME 9.7 fl (7.4-10.4); PLATELET COUNT 204 K/mm3 (130-400); RED BLOOD COUNT 3.61 M/mm3 (4.10-5.30); REDCELL DISTRIBUTION WIDTH-CV 12.7 % (11.5-14.5)
[2017-12-12 05:38] LABS: HEMATOCRIT 35.8 % (37.0-47.0)
[2017-12-12 05:48] LABS: ALBUMIN 3.5 gm/dL (3.5-5.0); BILIRUBIN,TOTAL 0.4 mg/dL (0.0-1.0); CALCIUM 8.2 mg/dL (8.4-10.2); CREATININE, serum 0.55 mg/dL (0.52-1.25); MAGNESIUM 2.1 mg/dL (1.6-2.3); POTASSIUM 3.5 mmol/L (3.4-5.0); TOTAL PROTEIN 6.3 gm/dL (6.4-8.2)
[2017-12-12 05:54] LABS: BAND 3 % (0-10); EOSINOPHIL 2 % (0-4); NEUTROPHILS 55 % (42.0-75.2); PLATELET ESTIMATE NORMAL (NORMAL)
[2017-12-12 05:59] LABS: LYMPHOCYTE 35 % (20.0-51.0)
[2017-12-12 06:00] LABS: ANISOCYTOSIS 1+; POLYCHROMASIA 1+
[2017-12-12 06:15] LABS: INR 0.9 (0.8-3.0); PROTHROMBIN TIME 10.6 SECONDS (9.7-12.8)
[2017-12-12 08:24] LABS: PATHOLOGY DIFF REVIEW OK +
== END 2017-12-12 15:46 | disposition home or self-care (01) | DRG 918 ==
LOC: COL.ER 02:55 → ICU 07:02
PROVIDERS: Emergency Medicine; Internal Medicine
DX: T42.8X2A Poisoning by antiparkinsonism drugs and other central muscle-tone depressants, intentional self-harm, initial encounter (principal); F15.129 Other stimulant abuse with intoxication, unspecified; F44.9 Dissociative and conversion disorder, unspecified; F43.12 Post-traumatic stress disorder, chronic; F32.9 Major depressive disorder, single episode, unspecified; F17.210 Nicotine dependence, cigarettes, uncomplicated
CPT/HCPCS: 99223-AI; 99239; J1644; J7030

== ENCOUNTER 2018-10-27 05:00 | Emergency (ER) | payer MEDICARE, MEDICAID ==
[~2018-10-27] VITALS: Ht 170.2 cm; Wt 104.5 kg
[~2018-10-27 05:00] MED LIST changes: +ADDERALL10 MG PO; +KLONOPIN 0.5MG0.5 MG; +LATUDA20 MG; +LIORESAL 1010 MG/TAB; +NEURONTIN300 MG/CAP; +TRANSDERM-0.5 MG/21 TD; +TYLENOL 325MG325 MG PO
[2018-10-27 05:01] VITALS: TEMP 98.7
[2018-10-27 06:00] LABS: ARTERIAL BLD GAS O2 SATURATION 96.5 % (92-100); ARTERIAL BLD GAS TCO2 CT 26.6; ARTERIAL BLOOD GAS BASE EXCESS -0.4 (-2-2); ARTERIAL BLOOD GAS HCO3 25.2 meq/L (22-26); ARTERIAL BLOOD GAS PCO2 45.4 mmHg (35-45); ARTERIAL BLOOD GAS pH 7.36 (7.35-7.45)
[2018-10-27 06:04] LABS: BASO % 0.6 % (0.0-2.0); EOS # 0.3 (0.0-0.7); GRAN # 3.1 (1.4-6.5); GRAN % 47.9 % (42.2-75.2); HEMOGLOBIN 11.1 g/dl (12.5-16.0); LYMPH # 2.5 (1.2-3.4); LYMPH % 38.8 % (20.0-51.0); MEAN CELL VOLUME 97 fl (80.0-100.0); MEAN CORPUSCULAR HEMOGLOBIN 33 pg (27.0-31.0); MEAN CORPUSCULAR HGB CONC 34 g/dl (33.0-37.0); MEAN PLATELET VOLUME 9.3 fl (7.4-10.4); MONO # 0.6 (0.1-0.6); MONO % 8.5 % (1.7-9.3); PLATELET COUNT 252 K/mm3 (130-400); RED BLOOD COUNT 3.35 M/mm3 (4.10-5.30)
[2018-10-27 06:04] LABS: COLLECTION METHOD CLEAN CATCH
[2018-10-27 06:05] LABS: HEMATOCRIT 32.6 % (37.0-47.0)
[2018-10-27 06:15] LABS: MUCOUS Present /lpf; PH 6 (5-8); URINE APPEARANCE Clear; URINE BACTERIA None Seen /hpf; URINE BILIRUBIN Negative (NEGATIVE); URINE BLOOD Negative (NEGATIVE); URINE COLOR Yellow; URINE GLUCOSE Negative (NEGATIVE); URINE KETONE Negative (NEGATIVE); URINE LEUKOCYTE ESTERASE Negative (NEGATIVE); URINE NITRATE Negative (NEGATIVE); URINE PROTEIN(semi-quant) Negative (NEGATIVE); URINE RBC 0-2 /hpf; URINE UROBILINOGEN Negative (NEGATIVE); URINE WBC 0-2 /hpf
[2018-10-27 06:17] LABS: ALANINE AMINOTRANSFERASE 14 U/L (9-52); ALBUMIN 3.7 gm/dL (3.5-5.0); ALKALINE PHOSPHATASE 48 U/L (50-136); ANION GAP 7 mmol/L (7-16); AST,SGOT 25 U/L (15-37); BILIRUBIN,TOTAL 0.2 mg/dL (0.0-1.0); BLOOD UREA NITROGEN 6 mg/dL (7-17); CALCIUM 8.5 mg/dL (8.4-10.2); CARBON DIOXIDE 26 mmol/L (22-30); CHLORIDE 107 mmol/L (98-107); CREATININE, serum 0.68 (0.52-1.25); GLUCOSE 86 mg/dL (74-106); POTASSIUM 3.4 mmol/L (3.4-5.0); SODIUM 140 mmol/L (137-145); TOTAL PROTEIN 6.6 gm/dL (6.4-8.2)
[2018-10-27 06:20] LABS: ACETAMINOPHEN < 10 ug/mL (10-30); ALCOHOL(ethanol),MEDICAL < 10 mg/dL; SALICYLATE < 1.0 mg/dL
[2018-10-27 06:22] LABS: TRICYCLIC ANTIDEPRESS URINE NEGATIVE
[2018-10-27 06:29] LABS: TROPONIN-I < 0.012 ng/mL (0.000-0.035)
[2018-10-27 08:30] VITALS: BP 103/70; PULSE 91
== END 2018-10-27 08:40 | disposition short-term general hospital (02) ==
LOC: COL.ER 05:00
PROVIDERS: Emergency Medicine
DX: R41.82 Altered mental status, unspecified (principal); F43.10 Post-traumatic stress disorder, unspecified; F32.9 Major depressive disorder, single episode, unspecified; F41.9 Anxiety disorder, unspecified
CPT/HCPCS: J7030; J7120

== ENCOUNTER 2019-02-28 12:14 | Emergency (ER) | payer MEDICARE, MEDICAID ==
[~2019-02-28] VITALS: Ht 165.1 cm; Wt 102.3 kg
[2019-02-28 12:20] VITALS: TEMP 98.2
[2019-02-28 13:07] LABS: BASO # 0.1 (0.0-0.2); BASO % 0.7 % (0.0-2.0); EOS # 0.2 (0.0-0.7); EOS % 2.7 % (0-4.0); GRAN # 5.6 (1.4-6.5); GRAN % 63.1 % (42.2-75.2); HEMATOCRIT 38.8 % (37.0-47.0); HEMOGLOBIN 12.9 g/dl (12.5-16.0); LYMPH # 2.1 (1.2-3.4); LYMPH % 24.1 % (20.0-51.0); MEAN CELL VOLUME 97 fl (80.0-100.0); MEAN CORPUSCULAR HEMOGLOBIN 32 pg (27.0-31.0); MEAN CORPUSCULAR HGB CONC 33 g/dl (33.0-37.0); MEAN PLATELET VOLUME 9.8 fl (7.4-10.4); MONO # 0.8 (0.1-0.6); MONO % 9.2 % (1.7-9.3); PLATELET COUNT 288 K/mm3 (130-400); RED BLOOD COUNT 4.01 M/mm3 (4.10-5.30); REDCELL DISTRIBUTION WIDTH-CV 13.1 % (11.5-14.5)
[2019-02-28 13:29] LABS: ALANINE AMINOTRANSFERASE 16 U/L (9-52); ALBUMIN 4.4 gm/dL (3.5-5.0); ALKALINE PHOSPHATASE 60 U/L (50-136); ANION GAP 7 mmol/L (7-16); AST,SGOT 36 U/L (15-37); BILIRUBIN,TOTAL 0.3 mg/dL (0.0-1.0); BLOOD UREA NITROGEN 8 mg/dL (7-17); CALCIUM 9.3 mg/dL (8.4-10.2); CARBON DIOXIDE 25 mmol/L (22-30); CHLORIDE 107 mmol/L (98-107); CREATININE, serum 0.67 (0.52-1.25); GLUCOSE 97 mg/dL (74-106); SODIUM 139 mmol/L (137-145); TOTAL PROTEIN 7.7 gm/dL (6.4-8.2)
[2019-02-28 13:42] LABS: ACETAMINOPHEN < 10 ug/mL (10-30); ALCOHOL(ethanol),MEDICAL < 10 mg/dL; C-REACTIVE PROTEIN < 0.5 mg/dL (0.0-0.9); SALICYLATE < 1.0 mg/dL
[2019-02-28 13:43] LABS: PROLACTIN 13.5 ng/mL (3.0-18.6)
[2019-02-28 14:45] LABS: COLLECTION METHOD CLEAN CATCH
[2019-02-28 14:50] LABS: PH 6 (5-8); SQUAMOUS EPITHELIAL 0-2 /hpf; URINE APPEARANCE Clear; URINE BACTERIA None Seen /hpf; URINE BILIRUBIN Negative (NEGATIVE); URINE BLOOD Negative (NEGATIVE); URINE COLOR Straw; URINE GLUCOSE Negative (NEGATIVE); URINE KETONE Negative (NEGATIVE); URINE LEUKOCYTE ESTERASE Trace (NEGATIVE); URINE NITRATE Negative (NEGATIVE); URINE PROTEIN(semi-quant) Negative (NEGATIVE); URINE RBC 0-2 /hpf; URINE UROBILINOGEN Negative (NEGATIVE)
[2019-02-28 14:59] LABS: TRICYCLIC ANTIDEPRESS URINE NEGATIVE
[2019-02-28] MEDS ORDERED: MACROBID 1100 MG/CAP PO (15:13)
[2019-02-28 15:30] VITALS: BP 114/86; PULSE 87
== END 2019-02-28 15:30 | disposition home or self-care (01) ==
LOC: COL.ER 12:14
PROVIDERS: Physician Assistant
DX: N39.0 Urinary tract infection, site not specified (principal); F32.9 Major depressive disorder, single episode, unspecified; F41.9 Anxiety disorder, unspecified; Z87.891 Personal history of nicotine dependence
CPT/HCPCS: J2550; J7030

== ENCOUNTER 2019-02-28 16:05 | Emergency (ER) | payer MEDICARE, MEDICAID ==
[~2019-02-28] VITALS: Ht 165.1 cm; Wt 104.5 kg
[2019-02-28 18:00] VITALS: BP 117/76; TEMP 98.5
[2019-02-28 21:03] VITALS: PULSE 94
== END 2019-02-28 21:03 | disposition home or self-care (01) ==
LOC: COL.ER 16:05
DX: R51 Headache (principal); R42 Dizziness and giddiness; J45.909 Unspecified asthma, uncomplicated; F17.210 Nicotine dependence, cigarettes, uncomplicated; F32.9 Major depressive disorder, single episode, unspecified; F41.9 Anxiety disorder, unspecified

== ENCOUNTER 2019-03-03 01:05 | Emergency (ER) | payer MEDICARE, MEDICAID ==
[~2019-03-03] VITALS: Ht 162.6 cm; Wt 90.9 kg
[2019-03-03 01:15] VITALS: TEMP 98.9
[2019-03-03 03:20] LABS: BASO # 0.1 (0.0-0.2); BASO % 0.4 % (0.0-2.0); EOS # 0.2 (0.0-0.7); EOS % 1.5 % (0-4.0); GRAN # 9.8 (1.4-6.5); GRAN % 72.4 % (42.2-75.2); HEMATOCRIT 37.4 % (37.0-47.0); HEMOGLOBIN 12.8 g/dl (12.5-16.0); LYMPH # 2.5 (1.2-3.4); LYMPH % 18.3 % (20.0-51.0); MEAN CELL VOLUME 96 fl (80.0-100.0); MEAN CORPUSCULAR HEMOGLOBIN 33 pg (27.0-31.0); MEAN CORPUSCULAR HGB CONC 34 g/dl (33.0-37.0); MEAN PLATELET VOLUME 9.6 fl (7.4-10.4); PLATELET COUNT 269 K/mm3 (130-400); RED BLOOD COUNT 3.88 M/mm3 (4.10-5.30); REDCELL DISTRIBUTION WIDTH-CV 13.2 % (11.5-14.5)
[2019-03-03 03:32] LABS: ALANINE AMINOTRANSFERASE 17 U/L (9-52); ALBUMIN 4.3 gm/dL (3.5-5.0); ALKALINE PHOSPHATASE 57 U/L (50-136); ANION GAP 9 mmol/L (7-16); AST,SGOT 34 U/L (15-37); BILIRUBIN,TOTAL 0.3 mg/dL (0.0-1.0); BLOOD UREA NITROGEN 3 mg/dL (7-17); CALCIUM 9.1 mg/dL (8.4-10.2); CARBON DIOXIDE 25 mmol/L (22-30); CHLORIDE 108 mmol/L (98-107); CREATININE, serum 0.66 (0.52-1.25); GLUCOSE 91 mg/dL (74-106); LIPASE 17 U/L (23-300); POTASSIUM 3.6 mmol/L (3.4-5.0); SODIUM 141 mmol/L (137-145); TOTAL PROTEIN 7.4 gm/dL (6.4-8.2)
[2019-03-03 03:42] LABS: ACETAMINOPHEN < 10 ug/mL (10-30); SALICYLATE < 1.0 mg/dL
[2019-03-03 05:21] VITALS: BP 123/84
[2019-03-03 05:42] LABS: COLLECTION METHOD CLEAN CATCH
[2019-03-03 06:06] LABS: TRICYCLIC ANTIDEPRESS URINE NEGATIVE
[2019-03-03 06:14] LABS: MUCOUS Present /lpf; PH 6 (5-8); SQUAMOUS EPITHELIAL 0-2 /hpf; URINE APPEARANCE Hazy; URINE BACTERIA None Seen /hpf; URINE BILIRUBIN Negative (NEGATIVE); URINE BLOOD 2+ (NEGATIVE); URINE COLOR Yellow; URINE GLUCOSE Negative (NEGATIVE); URINE KETONE Negative (NEGATIVE); URINE LEUKOCYTE ESTERASE 3+ (NEGATIVE); URINE NITRATE Positive (NEGATIVE); URINE PROTEIN(semi-quant) Negative (NEGATIVE); URINE UROBILINOGEN Negative (NEGATIVE)
[2019-03-03 07:15] VITALS: PULSE 88
== END 2019-03-03 07:30 | disposition home or self-care (01) ==
LOC: COL.ER 01:05
PROVIDERS: Emergency Medicine
DX: T74.21XA Adult sexual abuse, confirmed, initial encounter (principal); F41.9 Anxiety disorder, unspecified; N39.0 Urinary tract infection, site not specified; F43.10 Post-traumatic stress disorder, unspecified; E66.9 Obesity, unspecified; F32.9 Major depressive disorder, single episode, unspecified; F17.210 Nicotine dependence, cigarettes, uncomplicated; Y04.8XXA Assault by other bodily force, initial encounter
CPT/HCPCS: J0595

== ENCOUNTER 2019-03-03 11:08 | Emergency (ER) | payer MEDICARE, MEDICAID ==
[~2019-03-03] VITALS: Ht 162.6 cm; Wt 100.0 kg
[2019-03-03 14:45] LABS: ACETAMINOPHEN < 10 ug/mL (10-30); ALCOHOL(ethanol),MEDICAL < 10 mg/dL; SALICYLATE < 1.0 mg/dL
[2019-03-03 15:32] LABS: TRICYCLIC ANTIDEPRESS URINE NEGATIVE
[2019-03-03 17:27] VITALS: BP 131/96; PULSE 105; TEMP 97.5
== END 2019-03-03 17:17 | disposition home or self-care (01) ==
LOC: COL.ER 11:08
PROVIDERS: Emergency Medicine
DX: R41.82 Altered mental status, unspecified (principal)

== ENCOUNTER 2019-03-04 19:35 | Emergency (ER) | payer MEDICARE, MEDICAID ==
[~2019-03-04] VITALS: Ht 162.6 cm; Wt 100.0 kg
[2019-03-04 19:41] VITALS: BP 141/88; TEMP 98.3
[2019-03-04 22:43] VITALS: PULSE 102
[2019-03-05] MEDS ORDERED: MUCINEX 60600 MG/TA1 PO (07:01)
[2019-03-05] MEDS ORDERED: MINIPRESS 1M1 MG/CAP PO (07:02)
[2019-03-05] MEDS ORDERED: REMERON 15M15 MG/TA1 PO (07:03)
[2019-03-05] MEDS ORDERED: ATIVAN 1MG T1 MG/TAB PO (07:06)
[2019-03-05] MEDS ORDERED: PHENERGAN50 M1 PO (07:07)
[2019-03-05] MEDS ORDERED: TORADOL 10MG TA10 MG PO (07:09)
[2019-03-05] MEDS ORDERED: MACROBID 1100 MG/CAP PO ×2 (14:59)
== END 2019-03-04 22:45 | disposition home or self-care (01) ==
LOC: COL.ER 19:35
DX: G43.909 Migraine, unspecified, not intractable, without status migrainosus (principal); F17.210 Nicotine dependence, cigarettes, uncomplicated; F32.9 Major depressive disorder, single episode, unspecified; F41.9 Anxiety disorder, unspecified; J45.909 Unspecified asthma, uncomplicated
CPT/HCPCS: J1200; J2765

== ENCOUNTER 2019-03-05 03:47 | Emergency (ER) | payer MEDICARE, MEDICAID ==
[2019-03-05 04:36] LABS: BASO % 0.3 % (0.0-2.0); EOS # 0.2 (0.0-0.7); EOS % 1.7 % (0-4.0); GRAN # 10.3 (1.4-6.5); GRAN % 83.5 % (42.2-75.2); HEMATOCRIT 37.3 % (37.0-47.0); HEMOGLOBIN 12.5 g/dl (12.5-16.0); LYMPH % 7.8 % (20.0-51.0); MEAN CELL VOLUME 97 fl (80.0-100.0); MEAN CORPUSCULAR HEMOGLOBIN 32 pg (27.0-31.0); MEAN CORPUSCULAR HGB CONC 34 g/dl (33.0-37.0); MEAN PLATELET VOLUME 9.6 fl (7.4-10.4); MONO # 0.8 (0.1-0.6); MONO % 6.4 % (1.7-9.3); PLATELET COUNT 275 K/mm3 (130-400); RED BLOOD COUNT 3.86 M/mm3 (4.10-5.30); REDCELL DISTRIBUTION WIDTH-CV 13.4 % (11.5-14.5)
[2019-03-05 04:47] LABS: ACETAMINOPHEN 11 ug/mL (10-30); ALANINE AMINOTRANSFERASE 17 U/L (9-52); ALBUMIN 4.3 gm/dL (3.5-5.0); ALKALINE PHOSPHATASE 69 U/L (50-136); ANION GAP 9 mmol/L (7-16); AST,SGOT 25 U/L (15-37); BILIRUBIN,TOTAL 0.1 mg/dL (0.0-1.0); BLOOD UREA NITROGEN 5 mg/dL (7-17); CARBON DIOXIDE 24 mmol/L (22-30); CHLORIDE 109 mmol/L (98-107); CREATININE, serum 0.71 (0.52-1.25); GLUCOSE 110 mg/dL (74-106); POTASSIUM 3.1 mmol/L (3.4-5.0); SALICYLATE 12.7 mg/dL; SODIUM 142 mmol/L (137-145); TOTAL PROTEIN 7.4 gm/dL (6.4-8.2)
[2019-03-05 05:02] LABS: ALCOHOL(ethanol),MEDICAL < 10 mg/dL
[2019-03-05] MEDS ORDERED: MUCINEX 60600 MG/TA1 PO (07:01)
[2019-03-05] MEDS ORDERED: MINIPRESS 1M1 MG/CAP PO (07:02)
[2019-03-05] MEDS ORDERED: REMERON 15M15 MG/TA1 PO (07:03)
[2019-03-05] MEDS ORDERED: ATIVAN 1MG T1 MG/TAB PO (07:06)
[2019-03-05] MEDS ORDERED: PHENERGAN50 M1 PO (07:07)
[2019-03-05] MEDS ORDERED: TORADOL 10MG TA10 MG PO (07:09)
[2019-03-05 08:09] LABS: COLLECTION METHOD CLEAN CATCH
[2019-03-05 08:19] LABS: MUCOUS Present /lpf; PH 5 (5-8); SQUAMOUS EPITHELIAL 20-50 /hpf; URINE APPEARANCE Cloudy; URINE BACTERIA Rare /hpf; URINE BILIRUBIN Negative (NEGATIVE); URINE BLOOD Negative (NEGATIVE); URINE COLOR Yellow; URINE GLUCOSE Negative (NEGATIVE); URINE KETONE 1+ (NEGATIVE); URINE LEUKOCYTE ESTERASE 1+ (NEGATIVE); URINE NITRATE Negative (NEGATIVE); URINE PROTEIN(semi-quant) Negative (NEGATIVE); URINE UROBILINOGEN Negative (NEGATIVE)
[2019-03-05 08:28] LABS: TRICYCLIC ANTIDEPRESS URINE NEGATIVE
[2019-03-05] MEDS ORDERED: MACROBID 1100 MG/CAP PO ×2 (14:59)
[2019-03-05 19:34] VITALS: BP 126/90; PULSE 104; TEMP 98.7
--- NOTE | 2019-03-06 15:56 | NUR ---
(LATE ENTRY 03/05/19) BUSINESS SERVICES REPRESENTATIVE student responded to a protective services social worker consult in the ED due to her frequency of visits to the ED. The patient was agreeable to sign up for the Community Care Team. The patient's father pick-up the patient. BUSINESS SERVICES REPRESENTATIVE student collaborated the above information with the patient's nurse.
== END 2019-03-05 19:13 | disposition home or self-care (01) ==
LOC: COL.ER 03:47
PROVIDERS: Emergency Medicine
DX: F32.9 Major depressive disorder, single episode, unspecified (principal)

== ENCOUNTER 2019-03-05 22:42 | Emergency (ER) | payer MEDICARE, MEDICAID ==
[~2019-03-05] VITALS: Ht 157.5 cm; Wt 79.5 kg
[~2019-03-05 22:42] MED LIST changes: +MINIPRESS 1M1 MG/CAP PO; +MUCINEX 60600 MG/TA1 PO; +PHENERGAN50 M1 PO; +REMERON 15M15 MG/TA1 PO; +TORADOL 10MG TA10 MG PO
[2019-03-05 23:47] LABS: COLLECTION METHOD CLEAN CATCH
[2019-03-05 23:47] LABS: BASO % 0.4 % (0.0-2.0); EOS # 0.1 (0.0-0.7); EOS % 1.9 % (0-4.0); GRAN # 4.9 (1.4-6.5); GRAN % 65.3 % (42.2-75.2); HEMOGLOBIN 12.2 g/dl (12.5-16.0); LYMPH # 1.8 (1.2-3.4); LYMPH % 24.6 % (20.0-51.0); MEAN CELL VOLUME 97 fl (80.0-100.0); MEAN CORPUSCULAR HEMOGLOBIN 33 pg (27.0-31.0); MEAN CORPUSCULAR HGB CONC 34 g/dl (33.0-37.0); MEAN PLATELET VOLUME 9.9 fl (7.4-10.4); MONO # 0.6 (0.1-0.6); MONO % 7.7 % (1.7-9.3); PLATELET COUNT 254 K/mm3 (130-400); RED BLOOD COUNT 3.73 M/mm3 (4.10-5.30); REDCELL DISTRIBUTION WIDTH-CV 13.2 % (11.5-14.5)
[2019-03-06 00:01] LABS: HEMATOCRIT 36.1 % (37.0-47.0)
[2019-03-06 00:03] LABS: MUCOUS Present /lpf; PH 6 (5-8); URINE APPEARANCE Hazy; URINE BACTERIA None Seen /hpf; URINE BILIRUBIN Negative (NEGATIVE); URINE BLOOD Negative (NEGATIVE); URINE COLOR Yellow; URINE GLUCOSE Negative (NEGATIVE); URINE KETONE Trace (NEGATIVE); URINE LEUKOCYTE ESTERASE Negative (NEGATIVE); URINE NITRATE Negative (NEGATIVE); URINE PROTEIN(semi-quant) Negative (NEGATIVE); URINE RBC 0-2 /hpf; URINE UROBILINOGEN Negative (NEGATIVE)
[2019-03-06 00:10] LABS: TROPONIN-I < 0.012 ng/mL (0.000-0.035)
[2019-03-06 00:13] LABS: ALANINE AMINOTRANSFERASE 24 U/L (9-52); ALBUMIN 4.1 gm/dL (3.5-5.0); ALKALINE PHOSPHATASE 63 U/L (50-136); ANION GAP 10 mmol/L (7-16); AST,SGOT 28 U/L (15-37); BILIRUBIN,TOTAL 0.2 mg/dL (0.0-1.0); BLOOD UREA NITROGEN 3 mg/dL (7-17); CARBON DIOXIDE 23 mmol/L (22-30); CHLORIDE 106 mmol/L (98-107); CREATININE, serum 0.73 (0.52-1.25); GLUCOSE 140 mg/dL (74-106); SALICYLATE 1.3 mg/dL; SODIUM 139 mmol/L (137-145)
[2019-03-06 00:14] LABS: TRICYCLIC ANTIDEPRESS URINE NEGATIVE
[2019-03-06 00:16] LABS: ACETAMINOPHEN < 10 ug/mL (10-30); ALCOHOL(ethanol),MEDICAL < 10 mg/dL; POTASSIUM 2.7 mmol/L (3.4-5.0)
[2019-03-06 00:51] LABS: C-REACTIVE PROTEIN 4.4 mg/dL (0.0-0.9)
[2019-03-06 02:28] LABS: ACETAMINOPHEN < 10 ug/mL (10-30); SALICYLATE 1.1 mg/dL
[2019-03-06 16:30] VITALS: BP 110/78; PULSE 74; TEMP 98.1
== END 2019-03-06 16:30 ==
LOC: COL.ER 22:42
PROVIDERS: Nurse Practitioner
DX: T50.912A Poisoning by multiple unspecified drugs, medicaments and biological substances, intentional self-harm, initial encounter (principal); F32.9 Major depressive disorder, single episode, unspecified; F17.210 Nicotine dependence, cigarettes, uncomplicated; J45.909 Unspecified asthma, uncomplicated

== ENCOUNTER 2021-05-09 23:07 | Emergency (ER) | payer MEDICARE, MEDICAID ==
[~2021-05-09] VITALS: Ht 162.6 cm; Wt 99.1 kg
[2021-05-09 23:11] VITALS: TEMP 98.3
[2021-05-09 23:26] LABS: COLLECTION METHOD CLEAN CATCH
[2021-05-09 23:34] LABS: PH 7 (5-8); SQUAMOUS EPITHELIAL 0-2 /hpf (0-10); URINE APPEARANCE Clear (CLEAR/HAZY); URINE BACTERIA Rare /hpf (NONE SEEN); URINE BILIRUBIN Negative (NEGATIVE); URINE BLOOD Negative (NEGATIVE); URINE COLOR Colorless (YELLOW); URINE GLUCOSE Negative (NEGATIVE); URINE KETONE Negative (NEGATIVE); URINE LEUKOCYTE ESTERASE Negative (NEGATIVE); URINE NITRATE Negative (NEGATIVE); URINE PROTEIN(semi-quant) Negative (NEGATIVE); URINE RBC 0-2 /hpf (0-2); URINE UROBILINOGEN Negative (NEGATIVE)
[2021-05-10 00:05] LABS: BASO # 0.1 K/mm3 (0.0-0.2); EOS # 0.4 K/mm3 (0.0-0.7); EOS % 3.8 % (0.0-4.0); GRAN # 4.8 K/mm3 (1.4-6.5); GRAN % 50.6 % (42.2-75.2); HEMOGLOBIN 14.3 g/dl (12.5-16.0); LYMPH # 3.5 K/mm3 (1.2-3.4); LYMPH % 36.9 % (20.0-51.0); MEAN CELL VOLUME 91 fl (80.0-100.0); MEAN CORPUSCULAR HEMOGLOBIN 30 pg (27-31); MEAN CORPUSCULAR HGB CONC 33 g/dl (33.0-37.0); MEAN PLATELET VOLUME 10.2 fl (7.4-10.4); MONO # 0.7 K/mm3 (0.1-0.6); MONO % 7.5 % (1.7-9.3); PLATELET COUNT 344 K/mm3 (130-400); RED BLOOD COUNT 4.75 M/mm3 (4.10-5.30); REDCELL DISTRIBUTION WIDTH-CV 13.5 % (11.5-14.5)
[2021-05-10 00:38] LABS: ALBUMIN 4.4 gm/dL (3.5-5.0); BILIRUBIN,TOTAL 0.2 mg/dL (0.2-1.2); CALCIUM 9.7 mg/dL (8.4-10.2); CREATININE, serum 0.74 mg/dL (0.57-1.11); POTASSIUM 5.1 mmol/L (3.5-4.5); TOTAL PROTEIN 8.6 gm/dL (6.2-8.1)
[2021-05-10 02:30] VITALS: BP 142/78; PULSE 64
== END 2021-05-10 02:31 | disposition home or self-care (01) ==
LOC: COL.ER 23:07
PROVIDERS: Student in an Organized Health Care Education/Training Program
DX: R50.9 Fever, unspecified (principal); R10.9 Unspecified abdominal pain; Z90.49 Acquired absence of other specified parts of digestive tract; Z32.02 Encounter for pregnancy test, result negative
CPT/HCPCS: Q9967